=== PATIENT | female | born 1970 | race Caucasian/White ===

== ENCOUNTER 2018-03-30 13:50 | Emergency (ER) | payer OTHER ==
[2018-03-30] MEDS ORDERED: DIPH,PERTUS(ACELL)TETVAC-LF 0.5 ML VIAL IM ONE (13:58)
--- NOTE | 2018-03-30 14:05 | ED ---
General Adult HPI - General Chief complaint: Fall Stated complaint: Fall Time Seen by Provider: 03/30/18 13:52 Source: patient, EMS, RN notes reviewed Mode of arrival: EMS Limitations: altered mental status - History of Present Illness Initial comments: Patient is a pleasant 47-year-old female presenting to the emergency department by EMS. Patient reportedly fell around 10 feet from a ladder. There was reported loss of consciousness, possibly up to 10 minutes. Patient is confused and does not recall the event. Patient answers questions inappropriately. Patient is unable to ride reliable history at this time. Patient denies any pain. Patient denies any dyspnea or chest pain. Unclear last tetanus immunization. - Related Data Home Medications Medication Instructions Recorded Confirmed Acetaminophen [Tylenol] 325 mg PO Q4H PRN 10/12/14 03/06/16 Allergies Allergy/AdvReac Type Severity Reaction Status Date / Time No Known Allergies Allergy Verified 10/12/14 11:14 Review of Systems ROS Statement: Those systems with pertinent positive or pertinent negative responses have been documented in the HPI. ROS Other: All systems not noted in ROS Statement are negative. Limitations: ROS unobtainable due to patients medical condition Past Medical History Additional Past Medical History / Comment(s): ARRYTHMIA History of Any Multi-Drug Resistant Organisms: None Reported Past Surgical History: Cholecystectomy Past Anesthesia/Blood Transfusion Reactions: Motion Sickness Smoking Status: Current some day smoker General Exam Limitations: altered mental status General appearance: alert Head exam: Present: other (Right posterior scalp laceration) Eye exam: Present: normal appearance, EOMI (Right eye tears delayed with lateral movement) ENT exam: Present: normal oropharynx Neck exam: Present: normal inspection, other (C-collar is in place). Absent: tenderness Respiratory exam: Present: normal lung sounds bilaterally. Absent: chest wall tenderness Cardiovascular Exam: Present: regular rate, normal rhythm Expanded Peripheral pulses: 2+: Radial (R), Radial (L), Dorsalis Pedis (R), Dorsalis Pedis (L) GI/Abdominal exam: Present: soft. Absent: tenderness Extremities exam: Present: full ROM. Absent: tenderness Back exam: Present: normal inspection Neurological exam: Present: alert, altered Expanded Neurological exam: Present: protecting the airway, other (Patient does not recall the event. Patient is somewhat repetitive) Patient oriented to: Present: person. Absent: place, time Cranial nerves: EOM's Intact: Abnormal Right (Somewhat delayed on the right eye with lateral movement.) Motor strength exam: RUE: 4, LUE: 5, RLE: 4, LLE: 5 Eye Response: (4) open spontaneously Motor Response: (6) obeys commands Verbal Response: (4) confused conversation Psychiatric exam: Present: normal mood Skin exam: Present: abrasion (Right elbow), other (Posterior scalp laceration) Course - Reevaluation(s) Reevaluation #1: 03/30/18 14:10 Further history taken from the . He is also updated on concerns regarding patient's presentation and exam. He states he did not witness the fall however patient was painting near the top of an 8 foot ladder. Patient did fall onto concrete. He was told patient struck her head first. 03/30/18 14:11 [facility] trauma was called upon patient arrival. Dr. otoole was updated. 03/30/18 14:45 Patient reevaluated. Family is further updated. Patient will be intubated to secure airway prior to transfer. Call received from radiologist regarding CT results. Case was discussed in detail with Dr. Gomez at [facility], who will accept transfer. 03/30/18 14:47 EMS called and will be standing by for transfer. Reevaluation #2: 03/30/18 14:58 Prior to intubation there is some blood noted coming from the right ear. On exam the blood does appear to be coming from the external canal. EKG Findings - EKG Comments: EKG Findings:: Normal sinus rhythm 74. CT 158. QRS 94. QT 416. QTC 46 D1. Normal axis. Normal QRS. No acute ST change. Procedures - Intubation Time Out Performed: Yes Sedative: Versed Paralytic: Succinylcholine Laryngoscope: Thomas Size: 3 ET Tube Size: 8 Tube Secured Depth (cm): 22 Tube Secured Location: lips Tube Placement Confirmation: visualized tube passing through cords, equal breath sounds bilaterally, confirmation by capnometry Patient Tolerated Procedure: well, no complications Medical Decision Making - Lab Data Result diagrams: 03/30/18 13:57 03/30/18 13:57 Lab Results 03/30/18 03/30/18 03/30/18 Range/Units 13:54 13:57 13:57 WBC 7.7 (3.8-10.6) k/uL RBC 4.30 (3.80-5.40) m/uL Hgb 13.9 (11.4-16.0) gm/dL Hct 39.9 (34.0-46.0) % MCV 92.9 (80.0-100.0) fL MCH 32.2 (25.0-35.0) pg MCHC 34.7 (31.0-37.0) g/dL RDW 12.6 (11.5-15.5) % Plt Count 172 (150-450) k/uL Neutrophils % 58 % Lymphocytes % 33 % Monocytes % 5 % Eosinophils % 2 % Basophils % 0 % Neutrophils # 4.4 (1.3-7.7) k/uL Lymphocytes # 2.5 (1.0-4.8) k/uL Monocytes # 0.4 (0-1.0) k/uL Eosinophils # 0.2 (0-0.7) k/uL Basophils # 0.0 (0-0.2) k/uL PT (9.0-12.0) sec INR (<1.2) APTT (22.0-30.0) sec Sodium 143 (137-145) mmol/L Potassium 3.5 (3.5-5.1) mmol/L Chloride 107 (98-107) mmol/L Carbon Dioxide 25 (22-30) mmol/L Anion Gap 11 mmol/L BUN 19 H (7-17) mg/dL Creatinine 0.80 (0.52-1.04) mg/dL Est GFR (CKD-EPI)AfAm >90 (>60 ml/min/1.73 sqM) Est GFR (CKD-EPI)NonAf 88 (>60 ml/min/1.73 sqM) Glucose 100 H (74-99) mg/dL POC Glucose (mg/dL) 114 H (75-99) mg/dL POC Glu Bonding Machine Operator ID Donte Pina Plasma Lactic Acid Catrachito (0.7-2.0) mmol/L Calcium 9.1 (8.4-10.2) mg/dL Total Bilirubin 0.8 (0.2-1.3) mg/dL AST 24 (14-36) U/L ALT 35 (9-52) U/L Alkaline Phosphatase 60 (38-126) U/L Total Creatine Kinase (30-135) U/L CK-MB (CK-2) (0.0-2.4) ng/mL CK-MB (CK-2) Rel Index Troponin I (0.000-0.034) ng/mL Total Protein 6.4 (6.3-8.2) g/dL Albumin 3.9 (3.5-5.0) g/dL Amylase 56 (30-110) U/L Lipase 173 (23-300) U/L Serum Alcohol <10 mg/dL 03/30/18 03/30/18 03/30/18 Range/Units 13:57 13:57 13:57 WBC (3.8-10.6) k/uL RBC (3.80-5.40) m/uL Hgb (11.4-16.0) gm/dL Hct (34.0-46.0) % MCV (80.0-100.0) fL MCH (25.0-35.0) pg MCHC (31.0-37.0) g/dL RDW (11.5-15.5) % Plt Count (150-450) k/uL Neutrophils % % Lymphocytes % % Monocytes % % Eosinophils % % Basophils % % Neutrophils # (1.3-7.7) k/uL Lymphocytes # (1.0-4.8) k/uL Monocytes # (0-1.0) k/uL Eosinophils # (0-0.7) k/uL Basophils # (0-0.2) k/uL PT 10.1 (9.0-12.0) sec INR 1.0 (<1.2) APTT 21.5 L (22.0-30.0) sec Sodium (137-145) mmol/L Potassium (3.5-5.1) mmol/L Chloride (98-107) mmol/L Carbon Dioxide (22-30) mmol/L Anion Gap mmol/L BUN (7-17) mg/dL Creatinine (0.52-1.04) mg/dL Est GFR (CKD-EPI)AfAm (>60 ml/min/1.73 sqM) Est GFR (CKD-EPI)NonAf (>60 ml/min/1.73 sqM) Glucose (74-99) mg/dL POC Glucose (mg/dL) (75-99) mg/dL POC Glu Bonding Machine Operator ID Plasma Lactic Acid Catrachito 1.1 (0.7-2.0) mmol/L Calcium (8.4-10.2) mg/dL Total Bilirubin (0.2-1.3) mg/dL AST (14-36) U/L ALT (9-52) U/L Alkaline Phosphatase (38-126) U/L Total Creatine Kinase 65 (30-135) U/L CK-MB (CK-2) 0.3 (0.0-2.4) ng/mL CK-MB (CK-2) Rel Index 0.5 Troponin I <0.012 (0.000-0.034) ng/mL Total Protein (6.3-8.2) g/dL Albumin (3.5-5.0) g/dL Amylase (30-110) U/L Lipase (23-300) U/L Serum Alcohol mg/dL - Radiology Data Radiology results: image reviewed (Is discussed with radiologist, T scan of the brain shows 5 mm left subdural hematoma, 3 mm right subdural hematoma. There is a right-sided skull fracture from the face near the temporal to the parietal bone. There is also some intraparenchymal and subarachnoid hemorrhage. There is also some fluid in the left ear. No shift. Chest x-ray and pelvis x-rays show no acute process.) Critical Care Time Critical Care Time: Yes Total Critical Care Time: 32 Disposition Clinical Impression: Subdural hematoma, Skull fracture, Intraparenchymal hemorrhage of brain, Subarachnoid hemorrhage Disposition: OTHER INSTITUTION NOT DEFINED Condition: Critical Is patient prescribed a controlled substance at d/c from ED?: No Referrals: Jaspreet Lyle DO [Primary Care Provider] - 1-2 days - Out of Hospital Transfer - Req. Specs Out of Hospital Transfer - Requested Specifics: Other Emergency Center
[2018-03-30 14:07] LABS: Basophils % (A) 0 %; Eosinophils # (A) 0.2 k/uL (0-0.7); Eosinophils % (A) 2 %; HCT 39.9 % (34.0-46.0); HGB 13.9 gm/dL (11.4-16.0); Lymphocytes # (A) 2.5 k/uL (1.0-4.8); Lymphocytes % (A) 33 %; MCH 32.2 pg (25.0-35.0); MCHC 34.7 g/dL (31.0-37.0); MCV 92.9 fL (80.0-100.0); Mean Platelet Volume 8.1; Monocytes # (A) 0.4 k/uL (0-1.0); Monocytes % (A) 5 %; Neutrophils # (A) 4.4 k/uL (1.3-7.7); Neutrophils % (A) 58 %; Platelet Count 172 k/uL (150-450); RDW 12.6 % (11.5-15.5); WBC 7.7 k/uL (3.8-10.6)
[2018-03-30 14:15] LABS: Glucose,Whole Blood 114 mg/dL (75-99)
--- NOTE | 2018-03-30 14:18 | XR ---
EXAMINATION TYPE: XR chest 1V portable DATE OF EXAM: 03/30/2018 COMPARISON: NONE HISTORY: Fall off of a ladder. Chest pain. TECHNIQUE: Single frontal view of the chest is obtained. FINDINGS: There is no focal air space opacity, pleural effusion, or pneumothorax seen. The cardiac silhouette size is upper limits of normal. The osseous structures are grossly intact. IMPRESSION: No acute cardiopulmonary process.
--- NOTE | 2018-03-30 14:20 | XR ---
EXAMINATION TYPE: XR pelvis AP view DATE OF EXAM: 03/30/2018 CLINICAL HISTORY: Fall off of a ladder with pelvic pain TECHNIQUE: A single AP view of the pelvis is obtained. COMPARISON: None. FINDINGS: There is no acute fracture/dislocation evident in the pelvis. The hip and sacroiliac join ts appear symmetric and unremarkable. The overlying soft tissue appears unremarkable. IMPRESSION: There is no acute fracture or dislocation in the pelvis.
[2018-03-30 14:21] LABS: ALT 35 U/L (9-52); AST 24 U/L (14-36); Albumin 3.9 g/dL (3.5-5.0); Alcohol <10 mg/dL; Alkaline Phosphatase 60 U/L (38-126); Amylase 56 U/L (30-110); Anion Gap 11 mmol/L; Blood Urea Nitrogen 19 mg/dL (7-17); Calcium 9.1 mg/dL (8.4-10.2); Carbon Dioxide 25 mmol/L (22-30); Chloride 107 mmol/L (98-107); Glucose 100 mg/dL (74-99); Lipase 173 U/L (23-300); Potassium 3.5 mmol/L (3.5-5.1); Sodium 143 mmol/L (137-145); Total Bilirubin 0.8 mg/dL (0.2-1.3); Total Protein 6.4 g/dL (6.3-8.2)
[2018-03-30 14:24] LABS: Prothrombin Time 10.1 sec (9.0-12.0)
[2018-03-30 14:29] LABS: Creatine Kinase 65 U/L (30-135)
[2018-03-30 14:31] LABS: Partial Thromboplastin Time 21.5 sec (22.0-30.0)
[2018-03-30 14:42] LABS: Creatine Kinase MB 0.3 ng/mL (0.0-2.4); Troponin I <0.012 ng/mL (0.000-0.034)
--- NOTE | 2018-03-30 14:43 | CT ---
EXAMINATION TYPE: CT brain cspine wo con DATE OF EXAM: 03/30/2018 COMPARISON: NONE HISTORY: Fall from 10 foot ladder trauma. Head and neck pain. CT DLP: 1377.9 mGycm. Automated Exposure Control for Dose Reduction was Utilized. TECHNIQUE: CT scan of the head and cervical spine are performed without contrast. FINDINGS: There is a crescentic left subdural hematoma without underlying calvarial fracture extendin g from the left frontal lobe to overlie the left temporal lobe and parietal lobe in the extra-axial s pace. This is thickest towards the skull vertex on series 3 image 33 measuring 3 mm and is hyperdense indicating acuity. Additionally punctate foci of hyperattenuation are seen along the left frontal lo be on series 3 image 14, 16, and 12. Punctate focus is also seen on the right on image 12. These appe ar to be within the sulci as does a more linear aspect within the right temporal lobe on image 8 and are suspicious for both subarachnoid hemorrhage and intraparenchymal hemorrhage. Pneumocephalus is al so seen adjacent to a right temporoparietal skull fracture as seen on sagittal image 5 and 6 with ove rlying scalp hematoma measuring 6 mm in thickness. This extends into the temporal bone at the skull b ase. Subcutaneous emphysema is also noted. Small amount of fluid is seen within the right middle ear cavity and could relate to a hemotympanum. Fluid extends into the right mastoid air cells. Air-fluid levels noted within the sphenoid sinus although no fracture is identified at this location and this i s likely related to paranasal sinus disease. No midline shift is appreciated. Globes are intact. Cer ebellar tonsils are noted to be low-lying, likely congenital. Additionally small subdural hematoma al daniel the right temporal lobe deep to the skull fracture measures 3 mm in greatest thickness on image 1 2. Cervical spine is visualized in its entirety from C1 through upper thoracic levels and demonstrates s atisfactory alignment without evidence of acute fracture or dislocation. Prevertebral soft tissue ap pears within normal limits. Mild multilevel degenerative changes of the cervical spine are seen as po sterior disc osteophyte complex is at C4-C5, C5-C6 and C6-C7. Probable bone island is present in the lower cervical spine. Straightening of usual cervical lordosis is seen and may relate to patient posi tioning. The C1-C2 articulation is unremarkable. 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 IMPRESSION: 1. Small left hemispheric acute subdural hematoma measuring up to 5 mm in greatest thickness without midline shift. 2. Pneumocephalus secondary to a right temporal parietal skull fracture extending into the skull base . Deep to this there is an additional acute right-sided small subdural hematoma measuring 3 mm in gre atest thickness. 3. Multiple foci of hyperattenuation along the left frontal lobe, left temporal lobe, left parietal l obe, and right temporal lobe likely related to a combination of both subarachnoid hemorrhage and intr aparenchymal hemorrhages/contusions. 4. There is no acute fracture or dislocation evident in the cervical spine. 5. Fluid within the right middle ear cavity and mastoid air cells may relate to hemotympanum from the skull base fracture. 6. All findings were relayed to the ordering ER physician Dr. Jalloh at 1440 on 03/30/[address] Renee.
[2018-03-30] MEDS ORDERED: MIDAZOLAM (PF) 1 MG/ML 5 ML VIAL IV STA (14:50)
[2018-03-30] MEDS ORDERED: SUCCINYLCHOLINE CHLORIDE VIAL 200 MG/10 ML VIAL IV ONE (14:50)
[2018-03-30] MEDS ORDERED: LORazepam 2 MG/ML INJ IV PRN (14:58)
[2018-03-30] MEDS ORDERED: PROPOFOL 1,000 MG in EMPTY BAG 1 BAG IV SCH (15:00)
[2018-03-30] MEDS: LORazepam 2 MG/ML INJ IV PRN ×3 (15:15→15:20)
[2018-03-30 15:18] LABS: Appearance,Urine Clear (Clear); Bilirubin,Urine Negative (Negative); Blood,Urine Negative (Negative); Color,Urine Yellow; Glucose,Urine (UA) Negative (Negative); Ketones,Urine 2+ (Negative); Leukocyte Esterase,Urine Negative (Negative); Nitrite,Urine Negative (Negative); PH, Urine 6.5 (5.0-8.0); Protein,Urine Trace (Negative); Specific Gravity,Urine 1.022 (1.001-1.035)
[2018-03-30 15:28] LABS: Amphetamine Screen,Urine Not Detected (NotDetected); Barbiturate Screen,Urine Not Detected (NotDetected); Benzodiazepines Screen,Urine Not Detected (NotDetected); Cocaine Screen,Urine Not Detected (NotDetected); Methadone Screen, Urine Not Detected (NotDetected); Opiate Screen,Urine Not Detected (NotDetected); Oxycodone Screen, Urine Not Detected (NotDetected); Phencyclidine Screen,Urine Not Detected (NotDetected); Tricyclic Antidepressant,Urine Not Detected (NotDetected); Urn Cannabinoid Scrn Not Detected (NotDetected)
--- NOTE | 2018-03-30 15:28 | XR ---
EXAMINATION TYPE: XR chest 1V portable DATE OF EXAM: 03/30/2018 COMPARISON: 03/30/2018 2:02 PM HISTORY: Ventilatory dependent respiratory failure. TECHNIQUE: Single frontal view of the chest is obtained. FINDINGS: Endotracheal tube appears appropriately placed midline and terminating at the level of the aortic arch. Enteric tube is also appropriately placed coiling in the region of the gastric body wit h its fenestrated portion beyond the gastroesophageal junction. Cardiomediastinal silhouette is withi n normal limits. Osseous structures are grossly intact. Limited inspiration creates crowding of the p ulmonary vasculature however no focal consolidation or pneumothorax are seen. IMPRESSION: Appropriately placed enteric and endotracheal tubes. No acute cardiopulmonary process.
[2018-03-30] MEDS ORDERED: ONDANSETRON 4 MG/2 ML VIAL IVP STA (16:14)
[2018-03-30 16:24] VITALS: BP 118/69; PULSE 80; RESP 20; TEMP 98.2
[2018-03-30] MEDS ORDERED: CHLORHEXIDINE GLUCONATE 15 ML CUP MUCOUS MEM SCH (21:00)
== END 2018-03-30 15:20 | disposition other institution (70) ==
LOC: EC 13:50
DX: S02.19XB Other fracture of base of skull, initial encounter for open fracture (principal); S06.5X9A Traumatic subdural hemorrhage with loss of consciousness of unspecified duration, initial encounter; S06.6X9A Traumatic subarachnoid hemorrhage with loss of consciousness of unspecified duration, initial encounter; S06.349A Traumatic hemorrhage of right cerebrum with loss of consciousness of unspecified duration, initial encounter; S50.311A Abrasion of right elbow, initial encounter; F17.200 Nicotine dependence, unspecified, uncomplicated; Z23 Encounter for immunization; W11.XXXA Fall on and from ladder, initial encounter
CPT/HCPCS: 99291 ×2; 31500 ×2; 96374 ×2; 96375 ×2; 90471 ×2; 36415; 94002; 93005; 86900; 86901; 80053; 82150; 82550; 82553; 83605; 83690; 84484; 85025; 85610; 85730; 86850; 81003; 81025; 80306; 80320; 72170; 71045; 72125; 70450; 90715; J0330; J2060; J2405; J2250; J2704

== ENCOUNTER → 2018-04-26 | Outpatient (CLI) | payer OTHER ==
--- NOTE | 2018-04-26 15:34 | XR ---
EXAMINATION TYPE: XR elbow complete RT DATE OF EXAM: 04/26/2018 CLINICAL HISTORY: Pain, swelling, and redness after injury. TECHNIQUE: Frontal, lateral and oblique images of the right elbow are obtained. COMPARISON: None FINDINGS: There is no acute fracture/dislocation evident in the right elbow. No abnormal fat pad si gns are seen. Mild subcutaneous edema along dorsal ulnar aspect is present. Small focal fluid in the olecranon bursa is noted. IMPRESSION: There is no acute fracture or dislocation in the right elbow.
== END | disposition home or self-care (01) ==
LOC: RADXRMAIN 15:01
PROVIDERS: ATTEND Family Medicine
DX: M25.521 Pain in right elbow (principal)

== ENCOUNTER → 2018-05-03 | Outpatient (CLI) | payer OTHER ==
--- NOTE | 2018-05-03 10:12 | US ---
EXAMINATION TYPE: US venous doppler duplex UE RT DATE OF EXAM: 05/03/2018 COMPARISON: NONE TECHNIQUE: Grayscale, color doppler, spectral doppler imaging performed of the deep veins of the rig ht upper extremity. CLINICAL HISTORY: 47-year-old female I80.629. Hx of right arm blood clot in upper arm per patient whe n she fell from a ladder in March 2018. On blood thinners. SIDE PERFORMED: Right Findings: The subclavian, internal jugular, axillary, brachial, and compared radial/ulnar veins are evaluated. Additionally, the basilic vein is assessed. Right Arm: Negative for DVT IMPRESSION: No evidence for DVT within the right upper extremity.
== END | disposition home or self-care (01) ==
LOC: RADUSWWP 08:31
PROVIDERS: ATTEND Surgery
DX: I82.629 Acute embolism and thrombosis of deep veins of unspecified upper extremity (principal)

== ENCOUNTER → 2018-06-10 | Outpatient (CLI) | payer OTHER ==
[2018-06-10 17:14] LABS: Blood Urea Nitrogen 7 mg/dL (7-17)
--- NOTE | 2018-06-10 22:48 | CT ---
EXAMINATION TYPE: CT brain wo con DATE OF EXAM: 06/10/2018 COMPARISON: 03/30/2013 HISTORY: 47-year-old female history of epidural hemorrhage with loss of consciousness. Follow-up trau matic brain injury. TECHNIQUE: Examination was done in axial plane without intravenous contrast. Coronal and sagittal r econstructions performed. CT DLP: 1141 mGycm Automated exposure control for dose reduction was used. FINDINGS: There is a new mild cortical hypodensity inferior left frontal lobe, lateral aspect of the anterior l eft frontal lobe, and anterior left temporal lobe. Slight asymmetric dilatation of the temporal horn of the left lateral ventricle. No evidence for acute intracranial hemorrhage, acute ischemic change, mass, mass effect, midline shif t, extra-axial fluid collection. No hydrocephalus. No effacement of cerebral sulci or basal subarachn oid cisterns. Garcia-white matter interface region is maintained. Incomplete bridging across the patient's right parietotemporal calvarial fracture. Additional transve rse fracture extending through the petrous temporal bone, and axial image 11. Interval pneumatization of the mastoid air cells and middle ear cavities. Paranasal sinuses are well pneumatized. The globes are intact. IMPRESSION: 1. No acute intracranial abnormality seen. 2. There is some interval development of mild cortical encephalomalacia within the left frontal and t emporal lobes likely chronic sequela of patient's prior traumatic insult. 3. Incomplete bony bridging across the patient's right temporoparietal skull fracture. Transverse fra cture of the petrous right temporal bone redemonstrated but with interval aeration of the right middl e ear cavity and mastoid air cells.
--- NOTE | 2018-06-10 22:52 | CT ---
EXAMINATION TYPE: CT angio head neck DATE OF EXAM: 06/10/2018 COMPARISON: 03/30/2018 HISTORY: 47-year-old female Follow-up traumatic brain injury. TECHNIQUE: Contiguous axial scanning of the head and neck performed with IV Contrast, patient injecte d with 65 mL of Isovue 370. Coronal/sagittal MIP reconstructions performed. 3-D reconstructions gener ated on a dedicated independent workstation. CT DLP: 331.1 mGycm Automated exposure control for dose reduction was used. FINDINGS: Neck: Aortic arch normal caliber. Conventional arterial vessel branching anatomy. The brachiocephalic artery, right common carotid artery, and right internal carotid arteries are martinez nt. The left common and internal carotid arteries are widely patent. Patent origin of the bilateral vertebral arteries. These vessels are codominant and patent throughout their course. Head: The vertebral and basilar arteries as well as the internal carotid arteries are widely patent without significant stenosis. Anterior and posterior circulations are patent. No aneurysmal change is seen. IMPRESSION: 1. HEAD: NO SIGNIFICANT STENOSIS, ARTERIAL OCCLUSION, OR ANEURYSMAL CHANGE SEEN. 2. NECK: WIDELY PATENT CAROTID AND VERTEBRAL ARTERIES OF THE NECK.
== END ==
LOC: RADCTMAIN 15:59
PROVIDERS: ATTEND Psychiatry & Neurology Vascular Neurology
DX: G93.89 Other specified disorders of brain (principal); S02.19XA Other fracture of base of skull, initial encounter for closed fracture; S06.4X9A Epidural hemorrhage with loss of consciousness of unspecified duration, initial encounter
CPT/HCPCS: 82565; 84520; 70496; 70450; 70498; 36415; Q9967

== ENCOUNTER → 2018-08-02 | Outpatient (CLI) | payer OTHER ==
--- NOTE | 2018-08-02 13:10 | MR ---
MR right elbow HISTORY: Pain, olecranon bursitis Multiplanar multisequence imaging through the right elbow No comparisons There is fluid signal present at the level of the olecranon. Triceps tendon shows abnormal increased signal, thickening and partial discontinuity at the insertion. Articular cartilage signal is maintain ed. No sizable joint effusion. No evident fracture or dislocation. Biceps tendon shows a normal inser tion. Subcutaneous edema changes are present posteriorly. Bone marrow signal is maintained. IMPRESSION: Partial triceps tendon tear.
== END | disposition home or self-care (01) ==
LOC: RADMRIMAIN 07:05
PROVIDERS: ATTEND Orthopaedic Surgery
DX: S46.311A Strain of muscle, fascia and tendon of triceps, right arm, initial encounter (principal)

== ENCOUNTER 2019-10-17 12:16 | Day surgery (SDC) | payer OTHER ==
[2019-10-15 10:53] VITALS: BMI 22.4
[~2019-10-17 12:16] MED LIST: LACTATED RINGERS 1,000 ML IV SCH; LIDOCAINE 1% 20 ML VIAL (10MG/ML) FOR IV START INTRADERMA PRN
[2019-10-17 13:12] VITALS: RESP 16; TEMP 98.1
[2019-10-17] MEDS ORDERED: PROPOFOL 10 MG/ML 20 ML VIAL IV ONE (13:28)
[2019-10-17] MEDS ORDERED: MIDAZOLAM 2 MG/2 ML VIAL ONE (13:28)
[2019-10-17] MEDS ORDERED: fentaNYL (PF) 50 MCG/ML 2 ML AMP ONE (13:28)
--- NOTE | 2019-10-17 13:54 | P.PCN ---
Date of Procedure: 10/17/19 Procedure(s) Performed: BRIEF HISTORY: Patient is a 49-year-old pleasant white female scheduled for an elective colonoscopy as a part of evaluation of prior history of colon polyps. Last colonoscopy was 5 years ago. PROCEDURE PERFORMED: Colonoscopy with snare polypectomy. PREOPERATIVE DIAGNOSIS: History of colon polyps. IV sedation per Anesthesia. PROCEDURE: After informed consent was obtained, the patient, was brought into the endoscopy unit. IV sedation was administered by Anesthesia under continuous monitoring. Digital rectal examination was normal. Initially the Olympus CF-160 flexible video colonoscope was then inserted in the rectum, gradually advanced into the cecum without any difficulty. Careful examination was performed as the scope was gradually being withdrawn. Ileocecal valve and the appendiceal orifice were visualized and appeared normal. Prep was excellent. Mucosa of the cecum, ascending colon, appeared normal. In the proximal transverse colon at 70 cm from the anal was there was a 3 cm broad-based polyp that was removed by piecemeal snare polypectomy and complete polypectomy was accomplished. transverse colon, descending colon, sigmoid colon, and rectum appeared normal. Retroflexion was performed in the rectum and no lesions were seen. The patient tolerated the procedure well. IMPRESSION: 3 cm [id number] proximal transverse colon polyp at 70 cm from the anal verge status post piecemeal snare polypectomy and complete polypectomy accomplished Rest of the colon appeared normal RECOMMENDATIONS: Findings of this examination were discussed with the patient as well as her family. She was advised to follow with the biopsy results and have a repeat colonoscopy in one year
[2019-10-17 14:31] VITALS: BP 105/70; PULSE 69
== END 2019-10-17 14:47 | disposition home or self-care (01) ==
LOC: ORWHC2ENDO 12:16
PROVIDERS: ATTEND Internal Medicine Gastroenterology
DX: D12.3 Benign neoplasm of transverse colon (principal); Z86.010 Personal history of colon polyps; I49.9 Cardiac arrhythmia, unspecified; F17.200 Nicotine dependence, unspecified, uncomplicated; Z98.811 Dental restoration status
CPT/HCPCS: 81025; 88305; 45385; J2250; J3010; J2704

== ENCOUNTER 2020-10-27 08:17 | Day surgery (SDC) | payer MEDICARE, OTHER ==
[2020-10-25 12:59] VITALS: BMI 24.8
[~2020-10-27 08:17] MED LIST changes: +LIDOCAINE 1% (10MG/ML) FOR IV START INTRADERMA PRN; -LIDOCAINE 1% 20 ML VIAL (10MG/ML) FOR IV START INTRADERMA PRN
[2020-10-27] MEDS ORDERED: PROPOFOL 10 MG/ML 20 ML VIAL IV ONE (09:45)
[2020-10-27 09:50] VITALS: RESP 16; TEMP 98.5
--- NOTE | 2020-10-27 10:06 | P.PCN ---
Date of Procedure: 10/27/20 Procedure(s) Performed: BRIEF HISTORY: Patient is a 50-year-old pleasant male scheduled for an elective colonoscopy as a part of surveillance of prior history of colon polyps. Last colonoscopy was done a year ago and was noted to have a 3 cm serrated polyp in the transverse colon. PROCEDURE PERFORMED: Colonoscopy with biopsy . PREOPERATIVE DIAGNOSIS: History Of colon polyps. IV sedation per Anesthesia. PROCEDURE: After informed consent was obtained, the patient, was brought into the endoscopy unit. IV sedation was administered by Anesthesia under continuous monitoring. Digital rectal examination was normal. Initially the Olympus CF-160 flexible video colonoscope was then inserted in the rectum, gradually advanced into the cecum without any difficulty. Careful examination was performed as the scope was gradually being withdrawn. Ileocecal valve and the appendiceal orifice were visualized and appeared normal. Prep was excellent. In the base of cecum there was a 3 mm polyp that was removed by cold biopsy. Mucosa of the cecum, ascending colon, transverse colon, descending colon, sigmoid colon, and rectum appeared normal. Retroflexion was performed in the rectum and no lesions were seen. The patient tolerated the procedure well. IMPRESSION: 3 mm cecal polyp status post removal by cold biopsy Rest of the colon appeared normal RECOMMENDATIONS: Findings of this examination were discussed with the patient as well as her family. She was advised to follow with the biopsy results. If the biopsy shows an adenoma she can have a repeat colonoscopy in 3 years.
[2020-10-27 10:31] VITALS: BP 116/64; PULSE 52
== END 2020-10-27 10:46 | disposition home or self-care (01) ==
LOC: ORWHC2ENDO 08:17
PROVIDERS: ATTEND Internal Medicine Gastroenterology
DX: Z09 Encounter for follow-up examination after completed treatment for conditions other than malignant neoplasm (principal); D12.0 Benign neoplasm of cecum; Z86.010 Personal history of colon polyps; Z90.49 Acquired absence of other specified parts of digestive tract; Z98.890 Other specified postprocedural states
CPT/HCPCS: 88305; 45380; J2704

== ENCOUNTER → 2020-12-16 | Outpatient (CLI) | payer MEDICARE ==
--- NOTE | 2020-12-16 08:35 | US ---
EXAMINATION TYPE: US abdomen complete DATE OF EXAM: 12/16/2020 COMPARISON: NONE CLINICAL HISTORY: R10.11 Abdominal Pain. RUQ pain, cholecystectomy, increase in belching, pain during and after bowel movement within abd. EXAM MEASUREMENTS: Liver Length: 14.4 cm Gallbladder Wall: Surgically absent CBD: 0.5 cm Spleen: 9.9 cm Right Kidney: 9.5 x 4.9 x 4.9 cm Left Kidney: 9.2 x 3.8 x 5.6 cm Pancreas: wnl Liver: wnl Gallbladder: Surgically absent Evidence for sonographic Pina's sign: no CBD: wnl Spleen: wnl Right Kidney: wnl Left Kidney: wnl Upper IVC: wnl Abd Aorta: wnl IMPRESSION: 1. Normal abdomen ultrasound
== END | disposition home or self-care (01) ==
LOC: RADUSWWP 07:53
PROVIDERS: ATTEND Family Medicine
DX: R10.11 Right upper quadrant pain (principal)
CPT/HCPCS: 76700

== ENCOUNTER → 2021-02-24 | Outpatient (CLI) | payer MEDICARE ==
--- NOTE | 2021-02-28 10:49 | MM ---
Reason for exam: screening (asymptomatic). Last mammogram was performed 4 years and 8 months ago. History: Patient is nulliparous. Physical Findings: A clinical breast exam by your physician is recommended on an annual basis and results should be correlated with mammographic findings. MG 3D Screening Mammo W/Cad Bilateral CC and MLO view(s) were taken. Prior study comparison: August 27, 2018, mammogram. August 16, 2017, mammogram. June 14, 2016, bilateral MG screening mammo w CAD. The breast tissue is heterogeneously dense. This may lower the sensitivity of mammography. Possible partially obscured nodularity superior right MLO view middle depth. Additional view recommended. ASSESSMENT: Incomplete: need additional imaging evaluation, BI-RAD 0 RECOMMENDATION: Special view mammogram of the right breast. (3D) If lesion persists on supplemental views, image directed ultrasound is recommended. [facility] will attempt to contact patient to return for supplemental views and ultrasound if indicated.
== END | disposition home or self-care (01) ==
LOC: RADMAMWWP 14:45
PROVIDERS: ATTEND Family Medicine
DX: Z12.31 Encounter for screening mammogram for malignant neoplasm of breast (principal)
CPT/HCPCS: 77063; 77067

== ENCOUNTER → 2021-03-01 | Outpatient (CLI) | payer MEDICARE ==
--- NOTE | 2021-03-01 12:14 | MM ---
Reason for exam: additional evaluation requested from abnormal screening. Last mammogram was performed less than 1 month ago. History: Patient is postmenopausal and is nulliparous. Physical Findings: Nurse did not find any significant physical abnormalities on exam. MG 3D Work Up W/Cad RT Spot compression CC, spot compression MLO, and LM view(s) were taken of the right breast. Prior study comparison: February 24, 2021, bilateral MG 3d screening mammo w/cad. August 27, 2018, mammogram. The breast tissue is extremely dense which could obscure a lesion on mammography. There is no dominant lesion. There is no discrete abnormality that persists on additional views. These results were verbally communicated with the patient and result sheet given to the patient on 03/01/21. ASSESSMENT: Benign, BI-RAD 2 RECOMMENDATION: Return to routine screening mammogram schedule for both breasts.
== END | disposition home or self-care (01) ==
LOC: RADMAMWWP 10:52
PROVIDERS: ATTEND Family Medicine
DX: R92.8 Other abnormal and inconclusive findings on diagnostic imaging of breast (principal); Z78.0 Asymptomatic menopausal state
CPT/HCPCS: 77065; G0279; 77061

== ENCOUNTER → 2021-03-29 | Outpatient (CLI) | payer MEDICARE ==
--- NOTE | 2021-03-29 13:52 | CT ---
EXAMINATION TYPE: CT brain wo con DATE OF EXAM: 03/29/2021 COMPARISON: 06/10/2018 HISTORY: Severe double vision. History of post traumatic brain injury x2 years ago. CT DLP: 1098.[address] of the brain was performed. The ventricles, basal cisterns and sulci overlying the cerebral convexities demonstrate mild enlargem ent. Encephalomalacia left temporal lobe as well as the left frontal lobe increased from prior study. There is no evidence for intracranial hemorrhage or sulcal effacement. There is decreased attenuation about the periventricular white matter and deep white matter of both c erebral hemispheres, compatible with chronic small vessel ischemia. Differential diagnosis does inclu de demyelination. No mass effects are seen.No midline shift. Osseous calvarium is intact. If symptoms persist consider MRI. IMPRESSION: 1. Encephalomalacia left temporal lobe as well as the left frontal lobe increased from prior study.
--- NOTE | 2021-03-29 13:55 | CT ---
EXAMINATION TYPE: CT angio head DATE OF EXAM: 03/29/2021 COMPARISON: 06/10/2018 HISTORY: Severe double vision. History of post traumatic brain injury x2 years ago. CT DLP: 980.1 mGycm CONTRAST: CTA [place] with 3-D reconstruction is performed and with IV Contrast, patient injected with 100ml mL of Isovue 370. Contrast CTA of the [place] was performed 3-D reconstruction imaging obtained at a separate workstation. Vertebrobasilar system as well as intracranial portions of the internal carotid arterie s and their major tributaries are patent. I do not see evidence for sizable aneurysm or vascular mal formation. Please note MRI provides greater sensitivity and specificity. Visualized brain appears g rossly unremarkable. IMPRESSION: No evidence for sizable aneurysm or vascular malformation.
== END | disposition home or self-care (01) ==
LOC: RADCTMAIN 12:57
PROVIDERS: ATTEND Psychiatry & Neurology Neurology
DX: H53.2 Diplopia (principal); G93.89 Other specified disorders of brain; Z87.820 Personal history of traumatic brain injury
CPT/HCPCS: 70496; 70450; Q9967

== ENCOUNTER → 2021-04-12 | Outpatient (CLI) | payer MEDICARE | END | disposition home or self-care (01) | LOC: LABWHC1 15:37 | PROVIDERS: ATTEND Family Medicine | DX: R09.81 Nasal congestion (principal); Z20.822 Contact with and (suspected) exposure to COVID-19 | CPT/HCPCS: U0003; C9803 ==

== ENCOUNTER → 2022-01-24 | Outpatient (CLI) | payer MEDICARE ==
--- NOTE | 2022-01-24 15:03 | EST ---
EXERCISE STRESS AGE: 51 SEX: F HT: 5'5" WT: 150 lbs. PROTOCOL: Niko STAGE: 4 DURATION OF EXERCISE: 12:00 HEART RATE REST: 55 BLOOD PRESSURE REST: 118/78 MAXIMUM HEART RATE ACHIEVED: 169 MAXIMUM BLOOD PRESSURE: 193/88 85% MPHR: 144 100% MPHR: 169 METS: 12.1 INDICATIONS: Chest pain. CLINICAL INFORMATION: Baseline EKG shows sinus rhythm, normal axis, normal intervals. Patient exercised on Niko protocol for a total of 12 minutes, achieving 13 METS, 100% of predicted maximal heart rate, without chest pain or diagnostic ST-segment depression. CONCLUSIONS: 1. Excellent exercise tolerance. 2. Cardiolite portion of the stress test will be reported separately. MMODL / IJN: [id number] /
--- NOTE | 2022-01-24 15:46 | NM ---
EXAMINATION TYPE: NM stress cardiolite complete DATE OF EXAM: 01/24/2022 COMPARISON: NONE HISTORY: History of tobacco use. History of hypertension presents with chest pain and palpitations. TECHNIQUE: After the intravenous administration of 10.1 mCi Tc 99m Sestamibi - Rest images obtained 45 minutes post injection. The patient exercised using a JIM protocol and 1 minute prior to peak exercise was injected with 24.0 mCi Tc 99m Sestamibi - Stress images obtained 15 minutes post injecti on. FINDINGS: Targeted heart rate was achieved during performance of the study. Review of stress and rest SPECT michael ges demonstrates no distinct perfusion abnormality. Gated analysis shows normal wall motion with an estimated left ventricular ejection fraction of 56 % on stress images. IMPRESSION: No scintigraphic evidence for reversible ischemia
== END | disposition home or self-care (01) ==
LOC: RADNMMAIN 07:55
PROVIDERS: ATTEND Family Medicine
DX: R07.89 Other chest pain (principal); R00.2 Palpitations; Z87.891 Personal history of nicotine dependence
CPT/HCPCS: 93017; 78452; A9500

== ENCOUNTER → 2022-10-18 | Outpatient (CLI) | payer MEDICARE ==
--- NOTE | 2022-10-19 08:53 | MM ---
Reason for Exam: Screening (asymptomatic). Last mammogram was performed 1 year(s) and 8 month(s) ago. Patient History: Menarche at age 14. Patient has no children. Postmenopausal. Risk Values: Dasha 5 year model risk: 1.1%. NCI Lifetime model risk: 8.8%. Prior Study Comparison: 08/27/2018 Screening Mammogram, Unknown. 02/24/2021 Bilateral Screening Mammogram, [facility]. 03/01/2021 Right Diagnostic Mammogram, [facility]. Tissue Density: The breast tissue is heterogeneously dense. This may lower the sensitivity of mammography. Findings: Analyzed By CAD. There is no suspicious group of microcalcifications or new suspicious mass in either breast. Overall Assessment: Negative, BI-RAD 1 Management: Screening Mammogram of both breasts in 1 year. A clinical breast exam by your physician is recommended on an annual basis and results should be correlated with mammographic findings. [facility] will attempt to contact patient to return for supplemental views and ultrasound if indicated. Electronically signed and approved by: Kvng Jensen DO
== END | disposition home or self-care (01) ==
LOC: RADMAMWWP 11:42
PROVIDERS: ATTEND Family Medicine
DX: Z12.31 Encounter for screening mammogram for malignant neoplasm of breast (principal); Z78.0 Asymptomatic menopausal state
CPT/HCPCS: 77063; 77067

== ENCOUNTER → 2023-10-09 | Outpatient (CLI) | payer MEDICARE ==
--- NOTE | 2023-10-09 09:43 | XR ---
EXAMINATION TYPE: XR foot complete LT DATE OF EXAM: 10/09/2023 CLINICAL HISTORY: pain TECHNIQUE: Frontal, lateral and oblique images of the left foot are obtained. COMPARISON: None. FINDINGS: There is no acute fracture/dislocation evident. The joint spaces appear within normal dsouza its. The overlying soft tissue appears unremarkable. IMPRESSION: There is no acute fracture or dislocation. ICD 10 NO FRACTURE, INITIAL EVALUATION
--- NOTE | 2023-10-09 10:10 | XR ---
EXAMINATION TYPE: XR humerus LT DATE OF EXAM: 10/09/2023 CLINICAL HISTORY: pain TECHNIQUE: Frontal and lateral images of the left humerus are obtained. COMPARISON: None. FINDINGS: There is no acute fracture/dislocation evident. The joint spaces appear within normal limi ts. The overlying soft tissue appears unremarkable. IMPRESSION: There is no acute fracture or dislocation. ICD 10 NO FRACTURE, INITIAL EVALUATION
== END | disposition home or self-care (01) ==
LOC: RADXRMAIN 08:58
PROVIDERS: ATTEND Family Medicine
DX: M79.672 Pain in left foot (principal); M79.602 Pain in left arm

== ENCOUNTER → 2023-10-31 | Outpatient (CLI) | payer MEDICARE ==
--- NOTE | 2023-11-07 17:36 | CT ---
EXAMINATION TYPE: CT angio head CT DLP: 2540 mGycm, Automated exposure control for dose reduction was used. DATE OF EXAM: 10/31/2023 1:29 PM COMPARISON: 03/29/2021 CT head and CTA head. CLINICAL INDICATION:Female, 53 years old with history of S06.9XAA UNSPECIFIED INTCRN INJURY; PHH, Uns pecified intcrn injury TECHNIQUE: CT head was first performed without contrast. Axially acquired helical CT angiogram of the head and neck was obtained with contrast utilizing 75 cc of Isovue-370 administered intravenously. A xial images are supplemented with 3D reconstructions which were post-processed at an independent work station. NASCET criteria used. FINDINGS: Noncontrast CT-head: Encephalomalacia with volume loss involving the inferior aspect left frontal lob e and anterior left temporal lobe, consistent with remote traumatic brain injury. There is associated ex vacuo dilatation of the left lateral ventricle. Ventricles are overall stable without evidence fo r hydrocephalus. There is no loss of sarabia-white matter distinction, parenchymal or extra-axial hemorr braden/fluid collection. There is similar slight midline shift towards the left as a result of volume l oss. The basilar cisterns are patent. No acute osseous abnormality. The paranasal sinuses and mastoid air cells are clear. Radiodensity at the anterior aspect of the right ear consistent with body jewel ry. Round metallic radiodensity in the left infratemporal fossa may be sequela of previous trauma. Or bits are intact. CT angiogram-head: Vertebral arteries: The vertebral arteries are patent. Vertebral artery dominance: Codominant Basilar artery: Normal in course and caliber. The basilar artery bifurcation is normal, no basilar ti p aneurysm. Internal Carotid arteries: The cervical, petrous, cavernous and supraclinoid segments are normal. RENÉE: Patent with no evidence of aneurysm. ACOM: Present without evidence of aneurysm. MCA: Patent with no evidence of aneurysm. PODIATRIC SURGEON: Patent with no evidence of aneurysm. PCOM: Hypoplastic bilaterally. Dural sinuses: Appear patent without evidence of thrombosis. IMPRESSION: 1. Stable CTA head examination. No evidence of large vessel occlusion, significant stenosis, AVM, or aneurysm in the limits of CTA. 2. Stable CT head. Unchanged findings of encephalomalacia in the left frontal and temporal lobes.
== END | disposition home or self-care (01) ==
LOC: RADCTMAIN 12:29
PROVIDERS: ATTEND Psychiatry & Neurology Neurology
DX: S06.9XAA Unspecified intracranial injury with loss of consciousness status unknown, initial encounter (principal); G93.89 Other specified disorders of brain
CPT/HCPCS: 70496; Q9967

== ENCOUNTER 2023-11-21 11:49 | Day surgery (SDC) | payer MEDICARE ==
[2023-11-13 15:06] VITALS: BMI 29.5
[~2023-11-21 11:49] MED LIST changes: -LIDOCAINE 1% (10MG/ML) FOR IV START INTRADERMA PRN
[2023-11-21 12:35] VITALS: TEMP 98.1
[2023-11-21] MEDS ORDERED: PROPOFOL 10 MG/ML 20 ML VIAL IV ONE (12:49)
--- NOTE | 2023-11-21 13:12 | P.PCN ---
Date of Procedure: 11/21/23 Procedure(s) Performed: BRIEF HISTORY: Patient is a 53-year-old pleasant female scheduled for an elective colonoscopy as a part of evaluation of prior history of colon polyps and positive cologuard. PROCEDURE PERFORMED: Colonoscopy. PREOPERATIVE DIAGNOSIS: History of colon polyps and positive cologuard. IV sedation per Anesthesia. PROCEDURE: After informed consent was obtained, the patient, was brought into the endoscopy unit. IV sedation was administered by Anesthesia under continuous monitoring. Digital rectal examination was normal. Initially the Olympus CF-160 flexible video colonoscope was then inserted in the rectum, gradually advanced into the cecum without any difficulty. Careful examination was performed as the scope was gradually being withdrawn. Ileocecal valve and the appendiceal orifice were visualized and appeared normal. Prep was excellent. Mucosa of the cecum, ascending colon, transverse colon, descending colon, sigmoid colon, and rectum appeared normal. Scattered sigmoid diverticulosis. Retroflexion was performed in the rectum and no lesions were seen. The patient tolerated the procedure well. IMPRESSION: Normal-appearing colon from rectum to cecum no evidence of colorectal neoplasia Scattered sigmoid diverticulosis. . RECOMMENDATIONS: Findings of this examination were discussed with the patient as the patient as well as a family. She was advised to have a repeat colonoscopy in 5 years because of the prior history of colon polyps.
[2023-11-21 13:23] VITALS: RESP 14
[2023-11-21 13:46] VITALS: BP 114/75; PULSE 77
== END 2023-11-21 13:45 | disposition home or self-care (01) ==
LOC: ORWHC2ENDO 11:49
PROVIDERS: ATTEND Internal Medicine Gastroenterology
DX: K57.30 Diverticulosis of large intestine without perforation or abscess without bleeding (principal); I10 Essential (primary) hypertension; G43.909 Migraine, unspecified, not intractable, without status migrainosus; H91.90 Unspecified hearing loss, unspecified ear; F17.200 Nicotine dependence, unspecified, uncomplicated; Z86.010 Personal history of colon polyps; Z79.899 Other long term (current) drug therapy; Z86.718 Personal history of other venous thrombosis and embolism
CPT/HCPCS: 45378; J2704

== ENCOUNTER 2024-12-30 15:29 | Emergency (ER) | payer MEDICARE ==
[2024-12-30] MEDS: SODIUM CHLORIDE 0.9% 1,000 ML IV STA (16:34)
[2024-12-30] MEDS: ONDANSETRON 4 MG/2 ML VIAL IVP STA (16:35)
[2024-12-30] MEDS: HYDROmorphone 1 MG/ML 1 ML SYRINGE IVP STA ×2 (16:36→19:17)
--- NOTE | 2024-12-30 16:46 | ED ---
Abdominal Pain HPI - General Chief Complaint: Abdominal Pain Stated Complaint: abd pain, BILL Time Seen by Provider: 12/30/24 15:59 Source: patient, RN notes reviewed Mode of arrival: ambulatory Limitations: no limitations - History of Present Illness Initial Comments: This is a 54-year-old female who presents to the emergency department for abdominal pain. States that it started 2 days ago. Pain is in the epigastric region but seems to be worse on the left side. She has nausea but no vomiting. Pain seems to shoot up into her left shoulder on occasions. States that pain is worse when she tries to breathe or if she lays on that side, however she is not short of breath and pain does not go into her chest. She had initially thought this may be constipation, which she has struggled with in the past. However, she did try taking treatment for this and it was not very effective. She called her PCP who advised she come here for further evaluation and imaging. MD Complaint: abdominal pain - Related Data Home Medications Medication Instructions Recorded Confirmed Linzess (Unknown Dose) 1 tab PO DIRECTED PRN 11/13/23 11/21/23 amLODIPine [Norvasc] 5 mg PO HS 11/13/23 11/21/23 Previous Rx's Medication Instructions Recorded Hyoscyamine Sulfate [Levsin] 0.125 mg PO Q4-6H PRN #30 tab 12/30/24 Ondansetron Odt [Zofran Odt] 4 mg PO Q8HR PRN #20 tab 12/30/24 Pantoprazole Sodium 40 mg PO DAILY 14 Days #14 tab 12/30/24 Allergies Allergy/AdvReac Type Severity Reaction Status Date / Time No Known Allergies Allergy Verified 12/30/24 15:37 Review of Systems ROS Statement: Those systems with pertinent positive or pertinent negative responses have been documented in the HPI. ROS Other: All systems not noted in ROS Statement are negative. Past Medical History Past Medical History: Deep Vein Thrombosis (DVT), Memory Impairment, Seizure Disorder Additional Past Medical History / Comment(s): Hx PVC's. "Monitoring BP when last checked at Dr'melinda was 130/98, it's been lower than that at home." Hx skull fracture/brain bleed after a fall, traumatic brain injury. 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 Hx BLOOD CLOT X2, UPPER RT ARM -DISSIPATED WITH BLOOD THINNERS-RESOLVED, HAS MEMORY IMPAIRMENT POST Traumatic Brain Injury. HAS BB IN LT CHEEK FROM CHILDHOOD-NO MRI'S. History of Any Multi-Drug Resistant Organisms: None Reported Past Surgical History: Cholecystectomy, Hernia Repair Additional Past Surgical History / Comment(s): COLONOSCOPY X5, precancerous polyp removed, uterine polyp removed, HERNIA REPAIR INFANT, LYMPH NODE NODULE REMOVED FROM UNDER RT SIDE OF CHIN-BENIGN. Past Anesthesia/Blood Transfusion Reactions: Motion Sickness Additional Past Anesthesia/Blood Transfusion Reaction / Comment(s): HR went down with uterine polyp removal. Past Psychological History: Anxiety Smoking Status: Former smoker Past Alcohol Use History: Occasional Past Drug Use History: Marijuana - Past Family History Mother Family Medical History: No Reported History General Exam Limitations: no limitations General appearance: alert, in no apparent distress Head exam: Present: atraumatic, normocephalic, normal inspection Respiratory exam: Present: normal lung sounds bilaterally. Absent: respiratory distress, wheezes, rales, rhonchi, stridor Cardiovascular Exam: Present: regular rate, normal rhythm GI/Abdominal exam: Present: soft, tenderness (Left mid to upper abdomen), normal bowel sounds. Absent: distended Neurological exam: Present: alert, oriented X3, CN II-XII intact Psychiatric exam: Present: normal affect, normal mood Skin exam: Present: warm, dry, intact, normal color. Absent: rash Course Vital Signs 12/30/24 12/30/24 15:34 19:01 Temperature 98.2 F 98.1 F Pulse Rate 109 H 76 Respiratory 18 17 Rate Blood Pressure 156/90 134/89 O2 Sat by Pulse 97 98 Oximetry Medical Decision Making - Medical Decision Making This is a 54-year-old female who presents to the emergency department for abdominal pain. Was pt. sent in by a medical professional or institution? @ -No Did you speak to anyone other than the patient for history? @ -No Did you review nursing and triage notes? @ -Yes, and I agree, it is accurate with regards to the patient's symptoms. Were old charts reviewed? @ -No Differential Diagnosis? @ -Differential Abdominal Pain Women: Appendicitis, Cholecystitis, diverticulosis, ischemic bowel, pancreatitis, hepatitis, UTI, gastroenteritis, AAA, incarcerated hernia, bowel obstruction, constipation, inflammatory bowel, hepatitis, peptic ulcer disease, splenic infarction, perforated viscus, vulvitis, ovarian torsion, PID, kidney stone, placenta abruption, this is not meant to be an all-inclusive list EKG interpreted by me (3pts min.)? @ -EKG interpreted by me demonstrating the following: Sinus rhythm. Ventricular rate 83 bpm, W[place] interval 143 ms, QRS duration 83 ms, QTc 382 ms. X-rays interpreted by me (1pt min.)? @ -Not obtained CT interpreted by me (1pt min.)? @ -CT scan of the abdomen pelvis obtained. My interpretation identifies wall thickening around the stomach. U/S interpreted by me (1pt. min.)? @ -Not obtained What testing was considered but not performed? (CT, X-rays, U/S, labs)? Why? @ -None What meds were considered but not given? Why? @ -None Did you discuss the management of the patient with other professionals? @ -No Did you reconcile home meds? @ -No Was smoking cessation discussed for >3mins.? @ -I discussed smoking cessation for greater than 3 minutes. The risk of smoking were discussed with the patient including but not limited to risks of cancer, stroke, coronary artery disease and COPD. Also discussed with patient were multiple methods of quitting smoking. Lastly we discussed the financial cost of smoking. Was critical care preformed (if so, how long)? @ -No Were there social determinants of health that impacted care today? How? (Homelessness, low income, unemployed, alcoholism, drug addiction, transportation, low edu. Level, literacy, decrease access to med. care, fdc, rehab)? @ -No Was there de-escalation of care discussed even if they declined? (Discuss DNR or withdrawal of care, Hospice)? @ -No What co-morbidities impacted this encounter? (DM, HTN, Smoking, COPD, CAD, Cancer, CVA, Hep., AIDS, mental health diagnosis, sleep apnea, morbid obesity)? @ -Smoking Was patient admitted / discharged? @ -Discharged. Lab work unremarkable. Urinalysis not suggestive of infection. CT scan of the abdomen and pelvis demonstrates perigastric fat stranding involving the body and antrum with mild wall thickening suggesting acute gastritis. Findings reviewed with the patient. This is where the majority of her pain is located. Her symptoms were controlled in the emergency department. Prescription for pantoprazole, Levsin, and Zofran provided with dosing instructions reviewed. We discussed strict return parameters and close follow- up with her PCP in the next couple of days. Patient discharged home in stable condition. Case discussed with ED attending Dr. Jalloh. Return precautions reviewed in depth, the patient is instructed to return to the emergency department with any new, worsening, or concerning symptoms. Patient verbalized understanding. Undiagnosed new problem with uncertain prognosis? @ -None Drug Therapy requiring intensive monitoring for toxicity (Heparin, Nitro, Insulin, Cardizem)? @ -None Were any procedures done? @ -None Diagnosis/symptom? @ -Acute gastritis Acute, or Chronic, or Acute on Chronic? @ -Acute Uncomplicated (without systemic symptoms) or Complicated (systemic symptoms)? @ -Uncomplicated Side effects of treatment? @ -None Exacerbation, Progression, or Severe Exacerbation] @ -Not applicable Poses a threat to life or bodily function? @ -No - Lab Data Result diagrams: 12/30/24 16:35 12/30/24 16:35 Lab Results 12/30/24 12/30/24 12/30/24 Range/Units 16:35 16:35 16:35 WBC 7.5 (3.8-10.6) k/uL RBC 4.89 (3.80-5.40) m/uL Hgb 15.4 (11.4-16.0) gm/dL Hct 46.4 H (34.0-46.0) % MCV 94.8 (80.0-100.0) fL MCH 31.5 (25.0-35.0) pg MCHC 33.2 (31.0-37.0) g/dL RDW 12.2 (11.5-15.5) % Plt Count 116 L (150-450) k/uL MPV 9.3 Neutrophils % 65 % Lymphocytes % 22 % Monocytes % 10 % Eosinophils % 2 % Basophils % 1 % Neutrophils # 4.9 (1.3-7.7) k/uL Lymphocytes # 1.6 (1.0-4.8) k/uL Monocytes # 0.7 (0-1.0) k/uL Eosinophils # 0.1 (0-0.7) k/uL Basophils # 0.0 (0-0.2) k/uL Sodium 137 (137-145) mmol/L Potassium 3.8 (3.5-5.1) mmol/L Chloride 103 (98-107) mmol/L Carbon Dioxide 25 (22-30) mmol/L Anion Gap 9 mmol/L BUN 17 (7-17) mg/dL Creatinine 0.70 (0.52-1.04) mg/dL Est GFR (CKD-EPI)AfAm >90 (>60 ml/min/1.73 sqM) Est GFR (CKD-EPI)NonAf >90 (>60 ml/min/1.73 sqM) Glucose 91 (74-99) mg/dL Plasma Lactic Acid Catr[place]ito 0.8 (0.7-2.0) mmol/L Calcium 9.6 (8.4-10.2) mg/dL Total Bilirubin 0.9 (0.2-1.3) mg/dL AST 23 (14-36) U/L ALT 20 (4-34) U/L Alkaline Phosphatase 82 (38-126) U/L Troponin I (0.000-0.034) ng/mL Total Protein 7.2 (6.3-8.2) g/dL Albumin 4.5 (3.5-5.0) g/dL Amylase 56 (30-110) U/L Lipase 155 (23-300) U/L Urine Color Urine Appearance (Clear) Urine pH (5.0-8.0) Ur Specific [place] (1.001-1.035) Urine Protein (Negative) Urine Glucose (UA) (Negative) Urine Ketones (Negative) Urine Blood (Negative) Urine Nitrite (Negative) Urine Bilirubin (Negative) Urine Urobilinogen (<2.0) mg/dL Ur Leukocyte Esterase (Negative) Urine RBC (0-5) /hpf Urine WBC (0-5) /hpf Ur Squamous Epith Cells (0-4) /hpf Urine Mucus (None) /hpf 12/30/24 12/30/24 Range/Units 16:35 16:53 WBC (3.8-10.6) k/uL RBC (3.80-5.40) m/uL Hgb (11.4-16.0) gm/dL Hct (34.0-46.0) % MCV (80.0-100.0) fL MCH (25.0-35.0) pg MCHC (31.0-37.0) g/dL RDW (11.5-15.5) % Plt Count (150-450) k/uL MPV Neutrophils % % Lymphocytes % % Monocytes % % Eosinophils % % Basophils % % Neutrophils # (1.3-7.7) k/uL Lymphocytes # (1.0-4.8) k/uL Monocytes # (0-1.0) k/uL Eosinophils # (0-0.7) k/uL Basophils # (0-0.2) k/uL Sodium (137-145) mmol/L Potassium (3.5-5.1) mmol/L Chloride (98-107) mmol/L Carbon Dioxide (22-30) mmol/L Anion Gap mmol/L BUN (7-17) mg/dL Creatinine (0.52-1.04) mg/dL Est GFR (CKD-EPI)AfAm (>60 ml/min/1.73 sqM) Est GFR (CKD-EPI)NonAf (>60 ml/min/1.73 sqM) Glucose (74-99) mg/dL Plasma Lactic Acid [place] (0.7-2.0) mmol/L Calcium (8.4-10.2) mg/dL Total Bilirubin (0.2-1.3) mg/dL AST (14-36) U/L ALT (4-34) U/L Alkaline Phosphatase (38-126) U/L Troponin I <0.012 (0.000-0.034) ng/mL Total Protein (6.3-8.2) g/dL Albumin (3.5-5.0) g/dL Amylase (30-110) U/L Lipase (23-300) U/L Urine Color Colorless Urine Appearance Clear (Clear) Urine pH 5.5 (5.0-8.0) Ur Specific [place] 1.050 H (1.001-1.035) Urine Protein Negative (Negative) Urine Glucose (UA) Negative (Negative) Urine Ketones 1+ H (Negative) Urine Blood Negative (Negative) Urine Nitrite Negative (Negative) Urine Bilirubin Negative (Negative) Urine Urobilinogen <2.0 (<2.0) mg/dL Ur Leukocyte Esterase Trace H (Negative) Urine RBC 3 (0-5) /hpf Urine WBC 6 H (0-5) /hpf Ur Squamous Epith Cells 5 H (0-4) /hpf Urine Mucus Occasional H (None) /hpf - Radiology Data Radiology results: report reviewed, image reviewed Disposition Clinical Impression: Gastritis, Nicotine dependence Disposition: HOME SELF-CARE Instructions (If sedation given, give patient instructions): Gastritis (ED) Additional Instructions: Return to the emergency department with any new, worsening, or concerning symptoms. Begin taking the pantoprazole daily for the next 2 weeks. Try to take this 30 to 60 minutes before eating or taking other medication for the best effect. This can also be purchased [id number] if you wish to continue taking it and find it effective. Take the Levsin every 4-6 hours as needed to help with abdominal upset. Take the Zofran up to every 8 hours as needed for nausea and vomiting. Try to limit your use of anti-inflammatories like ibuprofen as well as spicy and acidic foods. Follow-up with your primary care provider in the next couple of days. Prescriptions: Hyoscyamine Sulfate [Levsin] 0.125 mg PO Q4-6H PRN #30 tab PRN Reason: Gi Upset Pantoprazole Sodium 40 mg PO DAILY 14 Days #14 tab Ondansetron Odt [Zofran Odt] 4 mg PO Q8HR PRN #20 tab PRN Reason: Nausea And Vomiting Is patient prescribed a controlled substance at d/c from ED?: No Referrals: Jaspreet Lyle DO [Primary Care Provider] - 1-2 days Time of Disposition: 18:19
[2024-12-30 16:57] LABS: ALT 20 U/L (4-34); AST 23 U/L (14-36); African American GFR (CKD) >90 (>60 ml/min/1.73 sqM); Albumin 4.5 g/dL (3.5-5.0); Alkaline Phosphatase 82 U/L (38-126); Amylase 56 U/L (30-110); Anion Gap 9 mmol/L; Blood Urea Nitrogen 17 mg/dL (7-17); Calcium 9.6 mg/dL (8.4-10.2); Carbon Dioxide 25 mmol/L (22-30); Chloride 103 mmol/L (98-107); Glucose 91 mg/dL (74-99); Lipase 155 U/L (23-300); Non-African American GFR(CKD) >90 (>60 ml/min/1.73 sqM); Potassium 3.8 mmol/L (3.5-5.1); Sodium 137 mmol/L (137-145); Total Bilirubin 0.9 mg/dL (0.2-1.3); Total Protein 7.2 g/dL (6.3-8.2)
[2024-12-30 17:30] LABS: Basophils % (A) 1 %; Eosinophils # (A) 0.1 k/uL (0-0.7); Eosinophils % (A) 2 %; HCT 46.4 % (34.0-46.0); HGB 15.4 gm/dL (11.4-16.0); Lymphocytes # (A) 1.6 k/uL (1.0-4.8); Lymphocytes % (A) 22 %; MCH 31.5 pg (25.0-35.0); MCHC 33.2 g/dL (31.0-37.0); MCV 94.8 fL (80.0-100.0); Mean Platelet Volume 9.3; Monocytes # (A) 0.7 k/uL (0-1.0); Monocytes % (A) 10 %; Neutrophils # (A) 4.9 k/uL (1.3-7.7); Neutrophils % (A) 65 %; Platelet Count 116 k/uL (150-450); RBC 4.89 m/uL (3.80-5.40); RDW 12.2 % (11.5-15.5); WBC 7.5 k/uL (3.8-10.6)
--- NOTE | 2024-12-30 17:31 | CT ---
EXAMINATION TYPE: CT abdomen pelvis w con CT DLP: 1229 mGycm, Automated exposure control for dose reduction was used. DATE OF EXAM: 12/30/2024 5:18 PM COMPARISON: CT abdomen pelvis 02/10/2016 CLINICAL INDICATION:Female, 54 years old with history of Abdominal pain, acute, nonlocalized; mid abd ominal pain x2 days. TECHNIQUE: Standard CT of the abdomen and pelvis following the administration of 100 cc of Isovue 3 00 IV contrast material. Coronal and sagittal reformats were performed. FINDINGS: LOWER CHEST: No significant findings ABDOMEN LIVER: Left hepatic lobe 8 mm cyst. Additional couple punctate hyperdense foci within the right hepat ic lobe which are too small to characterize but likely represent cysts. GALLBLADDER AND BILE DUCTS: The gallbladder is surgically absent. No biliary ductal dilatation. PANCREAS: Unremarkable. SPLEEN: Unremarkable. ADRENAL GLANDS: Unremarkable. KIDNEYS AND URETERS: No evidence of hydronephrosis. Nonobstructive right mid kidney 2.5 mm calculus. No left renal calculi. The kidneys enhance symmetrically. Contrast is demonstrated within both collec ting systems on the delayed phase. PELVIS BLADDER: Incompletely distended but grossly unremarkable. REPRODUCTIVE: Unremarkable. ABDOMEN & PELVIS STOMACH AND BOWEL: There is perigastric fat stranding involving the body and antrum with some mild wa ll thickening.Sigmoid diverticulosis without evidence for acute diverticulitis. The appendix is withi n normal limits. No evidence of bowel obstruction. PERITONEUM: No evidence of pneumoperitoneum. Small amount of free fluid in the pelvis. VASCULATURE: No evidence of aortic aneurysm. Pelvic phleboliths. MUSCULOSKELETAL: No acute osseous abnormalities. Degenerative disc disease at L5-S1. LYMPH NODES: No evidence for lymphadenopathy. SOFT TISSUE/ABDOMINAL WALL: Unremarkable IMPRESSION: 1. Inflammatory changes around the stomach suggesting acute gastritis. 2. Sigmoid diverticulosis without evidence for acute diverticulitis. 3. Nonobstructive right renal calculus. [facility], , 12/30/2024 5:29 PM
[2024-12-30 18:17] LABS: Appearance,Urine Clear (Clear); Bilirubin,Urine Negative (Negative); Blood,Urine Negative (Negative); Color,Urine Colorless; Glucose,Urine (UA) Negative (Negative); Ketones,Urine 1+ (Negative); Leukocyte Esterase,Urine Trace (Negative); Mucus,Urine Occasional /hpf; Nitrite,Urine Negative (Negative); PH, Urine 5.5 (5.0-8.0); Protein,Urine Negative (Negative); RBC,Urine 3 /hpf (0-5); Squamous Epithelial Cell,Urine 5 /hpf (0-4); Urobilinogen,Urine <2.0 mg/dL (<2.0); WBC,Urine 6 /hpf (0-5)
[2024-12-30 19:03] VITALS: BP 134/89; PULSE 76; RESP 17; TEMP 98.1
[2024-12-30] MEDS: ACET/COD 300 MG/30 MG STARTER PACK 6 TAB BTL PO STA (19:16)
[2024-12-30] MEDS: PANTOPRAZOLE 40 MG/10 ML VIAL IVP ONE (19:17)
== END 2024-12-30 20:00 | disposition home or self-care (01) ==
LOC: EC 15:29
DX: K29.00 Acute gastritis without bleeding (principal); Z87.891 Personal history of nicotine dependence
CPT/HCPCS: 99406; 99285; 96374; 96375 ×2; 96376; 96361; 36415; 93005; 80053; 82150; 83605; 83690; 84484; 85025; 81001; 74177; J2405; J1171; Q9967; J2470

== ENCOUNTER → 2025-02-05 | Outpatient (CLI) | payer MEDICARE ==
--- NOTE | 2025-02-05 14:23 | MM ---
Reason for Exam: Screening (asymptomatic). Last mammogram was performed 2 year(s) and 4 month(s) ago. Patient History: Menarche at age 14. Patient has no children. Postmenopausal. Risk Values: Dasha 5 year model risk: 1.2%. NCI Lifetime model risk: 8.5%. Prior Study Comparison: 02/24/2021 Bilateral Screening Mammogram, [facility]. 03/01/2021 Right Diagnostic Mammogram, [facility]. 10/18/2022 Bilateral MG 3D screening mammo w/cad, [facility]. Tissue Density: The breasts are heterogeneously dense, which may obscure small masses. Findings: Analyzed By CAD. Area of nodularity appears to be somewhat more conspicuous than on prior studies for outer right breast 7 cm from the nipple. Additional views are recommended. No nodularity left breast. No suspicious mitral desiccation is present. Overall Assessment: Incomplete: need additional imaging evaluation, BI-RAD 0 Management: Diagnostic Mammogram of the right breast. . Patient should continue monthly self-breast exams. A clinical breast exam by your physician is recommended on an annual basis. This exam should not preclude additional follow-up of suspicious palpable abnormalities. Note on Dasha scores and lifetime risk: 1. A Dasha score greater than 3% is considered moderate risk. If this is the case, consider specialist referral to assess eligibility for a risk reducing agent. 2. If overall lifetime risk for the development of breast cancer is 20% or higher, the patient may qualify for future screening with alternating mammogram and breast MRI. [facility], , 02/05/2025 2:21 PM. Electronically signed and approved by: Koko Wilhelm M.D. Radiologis
== END | disposition home or self-care (01) ==
LOC: RADMAMWWP 13:57
PROVIDERS: ATTEND Family Medicine
DX: Z12.31 Encounter for screening mammogram for malignant neoplasm of breast (principal); R92.333 Mammographic heterogeneous density, bilateral breasts; Z78.0 Asymptomatic menopausal state
CPT/HCPCS: 77063; 77067

== ENCOUNTER → 2025-02-09 | Outpatient (CLI) | payer MEDICARE ==
--- NOTE | 2025-02-09 13:46 | MM ---
Reason for Exam: Additional evaluation requested from abnormal screening. Last screening mammogram was performed less than 1 month ago. Patient History: Menarche at age 14. Patient has no children. Postmenopausal. Risk Values: Dasha 5 year model risk: 1.2%. NCI Lifetime model risk: 8.5%. Prior Study Comparison: 02/24/2021 Bilateral Screening Mammogram, [facility]. 03/01/2021 Right Diagnostic Mammogram, [facility]. 10/18/2022 Bilateral MG 3D screening mammo w/cad, [facility]. 02/05/2025 Bilateral MG 3D screening mammo w/cad, [facility]. Tissue Density: Right: The breasts are heterogeneously dense, which may obscure small masses. Findings: Analyzed By CAD. The upper outer quadrant focal asymmetry disperses on additional views compatible with benign superimposition shadow. Significant change from prior exams. Overall Assessment: Benign, BI-RAD 2 Management: Screening Mammogram of both breasts in 1 year. Results were given to the patient verbally at the time of exam. Patient should continue monthly self-breast exams. A clinical breast exam by your physician is recommended on an annual basis. This exam should not preclude additional follow-up of suspicious palpable abnormalities. Note on Dasha scores and lifetime risk: 1. A Dasha score greater than 3% is considered moderate risk. If this is the case, consider specialist referral to assess eligibility for a risk reducing agent. 2. If overall lifetime risk for the development of breast cancer is 20% or higher, the patient may qualify for future screening with alternating mammogram and breast MRI. [facility], , 02/09/2025 1:43 PM. Electronically signed and approved by: Poly Pearce M.D. Radiologist
== END | disposition home or self-care (01) ==
LOC: RADMAMWWP 13:02
PROVIDERS: ATTEND Family Medicine
DX: R92.8 Other abnormal and inconclusive findings on diagnostic imaging of breast (principal); R92.331 Mammographic heterogeneous density, right breast; Z78.0 Asymptomatic menopausal state
CPT/HCPCS: 77065; G0279; 77061